=== PATIENT | female | born 1985 | race Caucasian/White ===

== ENCOUNTER 2021-02-13 05:57 | Inpatient (IN) ==
[2021-02-13] MEDS ORDERED: OXYTOCIN/0.9 % SODIUM CHLORIDE 30 UNITS/500 ML BAG IV ONE ×2 (06:18→23:55)
[2021-02-13] MEDS ORDERED: DEXTROSE 5%-LACTATED RINGERS 1,000 ML IV PRN (06:18)
[2021-02-13] MEDS ORDERED: RINGER'S SOLUTION,LACTATED 1,000 ML IV ONE (06:18)
[2021-02-13] MEDS ORDERED: ONDANSETRON 4 MG TAB.RAPDIS PO PRN (06:18)
[2021-02-13] MEDS ORDERED: MISOPROSTOL 100 MCG TABLET VG PRN (06:18)
--- NOTE | 2021-02-13 09:17 | HP ---
Chief Complaint - Chief Complaint Date of Service: 02/13/21 Time of Service: 09:07 Chief Complaint: Induction of labor for AMA History of Present Illness: 35 yo at 39w1d admitted for induction of labor due to AMA. This complicated by AMA, anemia, anxiety, depression, DPS, umbilical hernia, h/o LEEP, and h/o migraines. Rh negative Rubella immune GBS negative Medical History (Last Reviewed 02/13/21 @ 09:12 by Suhail Gann DO) Anemia affecting (Acute) Onset Date: 11/27/20 Anxiety (Chronic) Depression (Chronic) History of depression (Chronic) Abnormal Pap smear of cervix Onset Date: ~10/29/19 LSIL, +HRHPV Anemia Onset Date: Unknown 08/2011-deficiency; 2013-w/pregfnancy CMV (cytomegalovirus infection) Onset Date: ~09/2013 CMV mono Candidiasis of vulva and vagina Onset Date: ~12/30/14 Depressive disorder Onset Date: ~06/01/12 Galactorrhea Onset Date: ~09/12/15 Irregular menses Onset Date: Unknown Lichen planus Onset Date: Unknown Lumbar disc disease Onset Date: ~08/13/12 Migraine with aura Onset Date: Unknown PCOS (polycystic ovarian syndrome) Onset Date: Unknown Panic attacks Onset Date: Unknown Pelvic pain in female Onset Date: ~08/11/12 Mild Seasonal allergies Onset Date: Unknown Surgical History: Surgical History (Last Reviewed 02/13/21 @ 09:12 by Suhail Gann DO) History of loop electrical excision procedure (LEEP) (Chronic) YUNIER 1 H/O adenoidectomy Onset Date: Unknown as a child History of back surgery Onset Date: ~12/2008 Dr [id number] History of nasal surgery Onset Date: Unknown 1979"s-"blockage" Hx of colonoscopy Onset Date: ~09/16/11 Dr [id number]-ps-[id number] tissue. hyperplastic polyp at 10cm [place] teeth extracted Onset Date: ~04/2009 Onset Date: ~10/2018 H/O LEEP Onset Date: 03/31/20 YUNIER I Family History: Family History (Last Reviewed 02/13/21 @ 09:12 by Suhail Gann DO) Mother Hypothyroidism Father Diverticulitis Hypertension Cardiac arrhythmia Sister Alive and well x2 Grandfather , Paternal Myocardial infarction Son Hypothyroidism Aunt Endometriosis Family/Other Colon cancer Great aunt. 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 current occupational exposures/hazards: No Service: No Tobacco: Smoking Status: Never smoker Alcohol: alcohol intake: current alcohol intake frequency: 0-2 drinks per day details: none since +UPT Substance Use: substance use type: does not use Dietary Habits: caffeine: Yes caffeine comment: 2 cups/day Type: coffee Exercise: Physical activity type: yoga How many days of moderate to strenuous exercise, like a brisk walk, did you do in the last 7 days: 5 Personal Safety: victim of physical abuse: No victim of emotional abuse: No Review Of Systems (GEN) - Review of Systems Generalized/Overall Review: Present: No Symptoms Reported EENTM: Present: No Symptoms Reported Respiratory: Present: No Symptoms Reported Cardiac: Present: No Symptoms Reported Abdominal: Present: No Symptoms Reported Genitourinary: Present: No Symptoms Reported Musculoskeletal: Present: No Symptoms Reported Neurological: Present: No Symptoms Reported Skin: Present: No Symptoms Reported Endocrine: Present: No Symptoms Reported Allergies/Adverse Reactions: Allergies Allergy/AdvReac Type Severity Reaction Status Date / Time codeine phosphate Allergy Severe Hives Verified 02/12/21 09:10 [From Tylenol-Codeine #3] dexamethasone [From Decadron] Allergy Severe Hives Verified 02/12/21 09:10 dexamethasone sod phosphate Allergy Severe Hives Verified 02/12/21 09:10 [From Decadron] diclofenac potassium Allergy Severe Hives Verified 02/12/21 09:10 [From Cataflam] fentanyl Allergy Severe Hives Verified 02/12/21 09:10 Penicillins Allergy Severe Hives Verified 02/12/21 09:10 sulfamethoxazole Allergy Severe Nausea Verified 02/12/21 09:10 [From Bactrim] trimethoprim [From Bactrim] Allergy Severe Nausea Verified 02/12/21 09:10 Home Medications: HOME MEDICATIONS citalopram 20 mg tablet 20 mg PO HS tab 08/07/20 [Last Taken 02/12/21] ferrous sulfate 325 mg (65 mg iron) tablet 325 mg PO DAILY 12/14/20 [Last Taken Unknown] Vits96/Iron Fum/Folic [ S] 1 tab PO DAILY 02/13/21 [Last Taken Unknown] Exam - Exam Vital Signs: Vital Signs - Last Taken Temp 36.7 C 02/13/21 06:20 Pulse 85 02/13/21 06:20 Resp 16 02/13/21 06:20 BP 112/56 02/13/21 06:20 Pulse Ox 98 02/13/21 06:20 Constitutional: Present: Alert, Oriented x3, Cooperative ENT Exam: Present: hearing grossly normal Neck: Present: non-tender. Absent: thyromegaly Respiratory: Present: lungs clear, no respiratory distress Cardiovascular/Chest: Present: normal peripheral pulses, regular rate, rhythm, no edema Abdomen: Present: soft, nontender, no rebound tenderness, other - gravid /Rectal: Present: Other - Cervix /- Extremity: Present: no pedal edema, no calf tenderness Skin Exam: Present: normal color, warm/dry, no cyanosis Lymphatic: Present: no adenopathy Neurologic: Present: alert, normal mood/affect, oriented x 3 Appearance: Present: appropriate appearance, appropriate insight Eye contact: Present: cooperative, good eye contact Thoughts: Present: normal thought pattern, normal mood /affect Assessment/Plan - Assessment/Plan (1) Advanced maternal age (AMA) in Assessment: Admit for induction of labor. Epidural PRN. If patient requires a c/s, she would like her tubes removed at that time. Otherwise, will do laparoscopically PP. Problem: Chronic (2) Anemia affecting Problem: Chronic Qualifiers: Trimester: third trimester Qualified Code(s): O99.013 - Anemia complicating , third trimester (3) Anxiety Problem: Chronic (4) Depression Problem: Chronic Qualifiers: Depression Type: unspecified Qualified Code(s): F32.9 - Major depressive disorder, single episode, unspecified (5) History of loop electrical excision procedure (LEEP) Problem: Chronic
--- NOTE | 2021-02-13 12:44 | PN ---
Progess Note - Interim Date: 02/13/21 Time: 12:43 Narrative: 02/13/21 12:43 Patient becoming more uncomfortable with contractions Vital signs stable. Status post Cytotec x1. FHT: 135 baseline, reassuring contractions q 2 min Cervix: 1/75/-2, cervical Barrios bulb inserted and filled with 60 mL of normal saline. Impression: Intrauterine at 39 weeks induction of labor for advanced maternal age. Plan: Continue present plan
[2021-02-13] MEDS ORDERED: BUPIVACAINE HCL/0.9 % NACL/PF 250 ML EP PRN (16:14)
[2021-02-13] MEDS ORDERED: ONDANSETRON HCL/PF 2 MG/ML VIAL IV PRN (16:14)
[2021-02-13] MEDS ORDERED: NALOXONE HCL 1 MG/1 ML SYRG IV PRN (16:14)
[2021-02-13] MEDS ORDERED: BUPIVACAINE HCL/PF 30 ML VIAL EP SCH (16:15)
--- NOTE | 2021-02-13 17:24 | ANES ---
Anesthesia Pre Procedure Eval Vitals/Labs: Last Vital Signs Temp 36.7 C 02/13/21 06:20 Pulse 85 02/13/21 06:20 Resp 16 02/13/21 06:20 BP 112/56 02/13/21 06:20 Pulse Ox 98 02/13/21 06:20 HOME MEDICATIONS citalopram 20 mg tablet 20 mg PO HS tab 08/07/20 [Last Taken 02/12/21] ferrous sulfate 325 mg (65 mg iron) tablet 325 mg PO DAILY 12/14/20 [Last Taken Unknown] Vits96/Iron Fum/Folic [ S] 1 tab PO DAILY 02/13/21 [Last Taken Unknown] Allergies/Adverse Reactions: Allergies Allergy/AdvReac Type Severity Reaction Status Date / Time codeine phosphate Allergy Severe Hives Verified 02/12/21 09:10 [From Tylenol-Codeine #3] dexamethasone [From Decadron] Allergy Severe Hives Verified 02/12/21 09:10 dexamethasone sod phosphate Allergy Severe Hives Verified 02/12/21 09:10 [From Decadron] diclofenac potassium Allergy Severe Hives Verified 02/12/21 09:10 [From Cataflam] fentanyl Allergy Severe Hives Verified 02/12/21 09:10 Penicillins Allergy Severe Hives Verified 02/12/21 09:10 sulfamethoxazole Allergy Severe Nausea Verified 02/12/21 09:10 [From Bactrim] trimethoprim [From Bactrim] Allergy Severe Nausea Verified 02/12/21 09:10 - Planned Procedure Planned Procedure: induction for ama 39 weeks Medication List Reviewed:: Yes Allergies Verified: Yes Medical History (Last Reviewed 02/13/21 @ 17:24 by Vimal Mo CRNA) Anemia affecting (Chronic) Onset Date: 11/27/20 Anxiety (Chronic) Depression (Chronic) History of depression (Chronic) Abnormal Pap smear of cervix Onset Date: ~10/29/19 LSIL, +HRHPV Anemia Onset Date: Unknown 08/2011-deficiency; 2014-w/pregfnancy CMV (cytomegalovirus infection) Onset Date: ~09/2013 CMV mono Candidiasis of vulva and vagina Onset Date: ~12/30/14 Depressive disorder Onset Date: ~06/01/12 Galactorrhea Onset Date: ~09/12/15 Irregular menses Onset Date: Unknown Lichen planus Onset Date: Unknown Lumbar disc disease Onset Date: ~08/13/12 Migraine with aura Onset Date: Unknown PCOS (polycystic ovarian syndrome) Onset Date: Unknown Panic attacks Onset Date: Unknown Pelvic pain in female Onset Date: ~08/11/12 Mild Seasonal allergies Onset Date: Unknown Surgical History (Last Reviewed 02/13/21 @ 17:24 by Vimal Mo CRNA) History of loop electrical excision procedure (LEEP) (Chronic) YUNIER 1 H/O adenoidectomy Onset Date: Unknown as a child History of back surgery Onset Date: ~12/2008 Dr [id number] History of nasal surgery Onset Date: Unknown 1979"s-"blockage" Hx of colonoscopy Onset Date: ~09/16/11 Dr FosterBzpwj-ci-kqftuj tissue. hyperplastic polyp at 10cm [place] teeth extracted Onset Date: ~04/2009 Onset Date: ~10/2018 H/O LEEP Onset Date: 03/31/20 YUNIER I Family History (Last Reviewed 02/13/21 @ 17:24 by Vimal Mo CRNA) Mother Hypothyroidism Father Diverticulitis Hypertension Cardiac arrhythmia Sister Alive and well x2 Grandfather , Paternal Myocardial infarction Son Hypothyroidism Aunt Endometriosis Family/Other Colon cancer Great aunt. Cousin - Family Anesthesia History Family History:: no untoward family reactions to anesthesia - Airway/Neck/Teeth Within Normal Limits:: Yes Teeth Condition: intact Neck Exam: full range of motion Mallampatti Score: 2 Thyromental (T-M) distance: > 6 cm Mandibulo Hyoid distance: > 3 cm - Respiratory Respiratory Physical: lungs clear Smoking Status: Former smoker Sleep Apnea currently treated: No Sleep Apnea by current assessment: No - Cardiovascular Tolerate Activity: Good Heart Sounds: S1 & S2, Regular - Gastrointestinal NPO since: 1200 - Anesthesia Assessment and Plan ASA Class: PS, II, E Anesthesia Type Plan: Epidural Planned difficult intubation/equipment available: No
--- NOTE | 2021-02-13 17:25 | ANES ---
Post Anesthesia Assessment - Vital Signs Vitals: Last Vital Signs Temp 36.7 C 02/13/21 06:20 Pulse 85 02/13/21 06:20 Resp 16 02/13/21 06:20 BP 112/56 02/13/21 06:20 Pulse Ox 98 02/13/21 06:20 Airway Patency: Normal - Mental Status Level Of Consciousness: Awake - Pain Level Pain Score: 2 - N/V Assessment Nausea/Vomiting Presence: None Dehydration:: No
--- NOTE | 2021-02-13 17:25 | ANES ---
Post Anesthesia Discharge - Transfer of Care Transfer of Care handoff given to nurse: Yes - Anesthesia Post Op Note Anesthesia Post Op Note: Care transferred to OB RN
--- NOTE | 2021-02-13 17:27 | ANES ---
Anesthesia Procedure Note Procedure Note: ANESTHESIA PROCEDURE NOTE Date of Procedure: 02/13/2021 Time of procedure: 1640. Performed by: Marcos Mo CRNA Suppository Molding Machine Operator: None. Preprocedure diagnosis: Active labor. Post procedure diagnosis: Same. Procedure: Insertion of labor epidural. Indications: The patient is a 35-year-old multigravida female in active labor requesting labor epidural for pain management. Findings: See below. Details of the procedure: The patient was placed in a sitting position. Back was prepped with DuraPrep. Patient was then draped in a sterile fashion. Lidocaine 1% was infiltrated to the skin and subcutaneous tissues at the level of the L3 4 interspace. The epidural space was identified using a 18-gauge Tuohy needle with [id number] technique. Epidural catheter was inserted without difficulty. Negative test dose was elicited using 5 mL of 1.5% preservative- free lidocaine plus epinephrine 1 200,000. The epidural catheter was then taped and secured in place. EBL: Minimal. Fluids: N/A. Specimen: N/A. Post procedure condition: The patient tolerated the procedure well. No complications were noted. Thank you for this consultation. Amato CRNA
--- NOTE | 2021-02-13 23:50 | OR ---
Operative Report - Dictated Report Narrative: Spontaneous vaginal delivery of viable female at 2319 on 02/13/2021 with Apgars 9 and 9, weighing 3190 g in ROP position. Cord clamping delayed approximately 1 minute Placenta delivered complete, intact, with three vessel cord Estimated blood loss: 100 mL Anesthesia: Epidural Lacerations: None History for MU History for Definition: * The number of deliveries resulting in a live the patient experienced prior to current hospitalization * The previous delivery of live twins or any live multiple gestation is considered one live event. *If primagravida or nulliparous is documented select zero for the number of previous live births. Live Events: Live Events: 3
[2021-02-13] MEDS ORDERED: GLYCERIN/WITCH HAZEL LEAF 40 APPL BOX TP PRN (23:55)
[2021-02-13] MEDS ORDERED: oxyCODONE HCL/ACETAMINOPHEN 1 TAB TABLET PO PRN (23:55)
[2021-02-13] MEDS ORDERED: BISACODYL 10 MG SUPP.RECT RC PRN (23:55)
[2021-02-13] MEDS ORDERED: SENNOSIDES 8.6 MG TABLET PO PRN (23:55)
[2021-02-13] MEDS ORDERED: BENZOCAINE/MENTHOL 81 SPRAY CAN TP PRN (23:55)
[2021-02-13] MEDS ORDERED: IBUPROFEN 800 MG TABLET PO PRN (23:55)
[2021-02-14] MEDS: IBUPROFEN 800 MG TABLET PO PRN ×3 (06:16→18:52)
[2021-02-14] MEDS: DOCUSATE SODIUM 100 MG CAPSULE PO SCH ×3 (12:16→20:29)
[2021-02-14] MEDS: PRENATAL VITS96/IRON FUM/FOLIC 1 TAB TABLET PO SCH (12:17)
[2021-02-14] MEDS: FERROUS SULFATE 325 MG TABLET PO SCH (12:17)
--- NOTE | 2021-02-14 12:39 | PN ---
Subjective - Date and Time Seen Date: 02/14/21 Time: 12:38 Objective - Vitals Vitals: Last Vital Signs Temp 36.8 C 02/14/21 07:37 Pulse 103 H 02/14/21 07:37 Resp 16 02/14/21 07:37 BP 115/64 02/14/21 07:37 Pulse Ox 98 02/14/21 07:37 Patient denies complaints. Breast-feeding. Lochia wnl abdomen - soft, nontender Uterus -firm, at umbilicus - 1 No calf tenderness Impression: day #1 - s/p spontaneous vaginal delivery. Plan: Continue routine care Cauti Physician Documentation - Urinary Catheter Management Urethral (Barrios) Date of Insertion: 02/13/21 Time of Insertion: 17:13 Date of Removal: 02/13/21 Time of Removal: 22:25 Assessment/Plan - Problems/Diagnosis (1) Advanced maternal age (AMA) in Problem: Chronic (2) Anemia affecting Problem: Chronic Qualifiers: Trimester: third trimester Qualified Code(s): O99.013 - Anemia complicating , third trimester (3) Anxiety Problem: Chronic (4) Depression Problem: Chronic Qualifiers: Depression Type: unspecified Qualified Code(s): F32.9 - Major depressive disorder, single episode, unspecified (5) History of loop electrical excision procedure (LEEP) Problem: Chronic
[2021-02-14] MEDS ORDERED: RHO(D) IMMUNE GLOBULIN 1,500 UNIT SYRINGE IM ONE (14:31)
[2021-02-14] MEDS ORDERED: CITALOPRAM HYDROBROMIDE 20 MG TABLET PO SCH ×2 (21:00)
[2021-02-15] MEDS: IBUPROFEN 800 MG TABLET PO PRN ×2 (05:20→12:47)
[2021-02-15 08:20] VITALS: BP 125/69
--- NOTE | 2021-02-15 09:12 | PN ---
Subjective - Date and Time Seen Date: 02/15/21 Time: 09:04 Objective - Vitals Vitals: Last Vital Signs Temp 36.5 C 02/15/21 08:19 Pulse 84 02/15/21 08:19 Resp 16 02/15/21 08:19 BP 125/69 02/15/21 08:19 Pulse Ox 100 02/15/21 08:19 Patient denies complaints. Breast-feeding well Lochia wnl abdomen - soft, nontender Uterus -firm, at umbilicus - 2 No calf tenderness Impression: day #2 - s/p spontaneous vaginal delivery. Plan: Routine discharge instructions Cauti Physician Documentation - Urinary Catheter Management Urethral (Barrios) Date of Insertion: 02/13/21 Time of Insertion: 17:13 Date of Removal: 02/13/21 Time of Removal: 22:25 Assessment/Plan - Problems/Diagnosis (1) Advanced maternal age (AMA) in Problem: Chronic (2) Anemia affecting Problem: Chronic Qualifiers: Trimester: third trimester Qualified Code(s): O99.013 - Anemia complicating , third trimester (3) Anxiety Problem: Chronic (4) Depression Problem: Chronic Qualifiers: Depression Type: unspecified Qualified Code(s): F32.9 - Major depressive disorder, single episode, unspecified (5) History of loop electrical excision procedure (LEEP) Problem: Chronic (6) Normal vaginal delivery Problem: Acute
--- NOTE | 2021-02-15 09:15 | DS ---
OB Discharge Summary (1) Advanced maternal age (AMA) in Status: Chronic (2) Anemia affecting Status: Chronic Qualifiers: Trimester: third trimester Qualified Code(s): O99.013 - Anemia complicating , third trimester (3) Anxiety Status: Chronic (4) Depression Status: Chronic Qualifiers: Depression Type: unspecified Qualified Code(s): F32.9 - Major depressive disorder, single episode, unspecified (5) History of loop electrical excision procedure (LEEP) Status: Chronic (6) Normal vaginal delivery Status: Acute Delivery Date: 02/13/21 Delivery Time: 23:19 :: 4 Para:: 3 Gestational weeks:: 39 Gestational days:: 0 Intrapartum Procedures: Spontaneous Vaginal Delivery, Delivered, Anesthesia - Epidural /OP Complications: No Complications Discharge Diagnosis: Term -Delivered - Discharge Information Date of Discharge: 02/15/21 Hospital Course: 35-year-old G4 now P3 admitted at 39 weeks for induction of labor due to advanced maternal age. Her delivery and course were uncomplicated. She was discharged on day 2 with routine discharge instructions. Discharge Location: Home Disposition: Home self-care Condition: Good Referrals: Carroll Pickard, [Primary Care Provider] - Activity on Discharge:: Activity as tolerated, Pelvic Rest Discharge Diet: General/regular food Additional Patient Instructions (free text): Tamy , your follow up appointment is Jim follow up appointment is Nurse her every 2 to 3 hours and on demand. Always lay her on her back to sleep, in her own crib. no extra pillows, blankets or stuffed animals. No co sleeping. weight - 7 lb 0.5 oz Todays weight - 6 lb 12.1 oz Blood type - O+ Congratulations on your new addition. Please don't hesitate with any questions or concerns. [facility] - [phone]. PEDS [phone]. Place - [phone]. Prescriptions (Any new or edited meds): Ibuprofen [Motrin] 200 - 800 mg PO Q6H PRN #100 tab PRN Reason: Pain Complete Home Medications List: Complete Home Medication List: citalopram 20 mg tablet 20 mg PO HS tab 08/07/20 ferrous sulfate 325 mg (65 mg iron) tablet 325 mg PO DAILY 12/14/20 Vits96/Iron Fum/Folic [ S] 1 tab PO DAILY 02/13/21 Ibuprofen [Motrin] 200 - 800 mg PO Q6H PRN #100 tab 02/14/21 - Plan Discharge to:: Home Follow up in office in:: 3-4 weeks - [place] Information Weight (Grams): 3,190 Sex: Female Score 1 min: 9 Score 5 min: 9 Complications: Decreased Variability, Extended Tachycardia, Multiple Late Decels
[2021-02-15] MEDS: DOCUSATE SODIUM 100 MG CAPSULE PO SCH (10:49)
[2021-02-15] MEDS: PRENATAL VITS96/IRON FUM/FOLIC 1 TAB TABLET PO SCH (10:49)
[2021-02-15] MEDS: FERROUS SULFATE 325 MG TABLET PO SCH (10:49)
== END 2021-02-15 13:30 | disposition home or self-care (01) | DRG 807 ==
LOC: OB 05:57
PROVIDERS: ADMIT Obstetrics & Gynecology; ATTEND Obstetrics & Gynecology